=== PATIENT | female | born 1990 | race Caucasian/White ===

== ENCOUNTER 2017-05-20 18:31 | Emergency (ER) | payer OTHER ==
[~2017-05-20] VITALS: Ht 162.6 cm; Wt 51.4 kg
[2017-05-20] MEDS ORDERED: INDOCIN25 MG PO (20:23)
[2017-05-20] MEDS ORDERED: ZOFRAN ODT4 MG PO (20:23)
[2017-05-20] MEDS ORDERED: AUGMENTIN875 MG PO (20:23)
[2017-05-20 20:46] VITALS: BP 122/73
== END 2017-05-20 20:46 | disposition home or self-care (01) ==
LOC: EME 18:31
DX: K04.7 Periapical abscess without sinus (principal); K02.9 Dental caries, unspecified; F17.200 Nicotine dependence, unspecified, uncomplicated
CPT/HCPCS: 99281; 99284; J1885